=== PATIENT | male | born 2000 | race Caucasian/White ===

== ENCOUNTER 2022-07-27 23:09 | Emergency (ER) | payer MEDICAID ==
[~2022-07-27] VITALS: Ht 167.6 cm; Wt 68.0 kg
[2022-07-27 23:15] VITALS: BP 137/77
[2022-07-28] MEDS ORDERED: KETOROLAC 60MG/2ML VIAL IM STA (00:19)
[2022-07-28] MEDS ORDERED: IBUP-2029 PO (00:50)
[2022-07-28] MEDS ORDERED: HYDR-4001 PO (00:50)
== END 2022-07-28 01:54 | disposition home or self-care (01) ==
LOC: ER 23:09
DX: S92.252A Displaced fracture of navicular [scaphoid] of left foot, initial encounter for closed fracture (principal); W18.30XA Fall on same level, unspecified, initial encounter; Y93.89 Activity, other specified; Y92.89 Other specified places as the place of occurrence of the external cause; Y99.8 Other external cause status
CPT/HCPCS: 29125; 73110; 96372; 99283; J1885